=== PATIENT | male | born 1980 | race African-American/Black ===

== ENCOUNTER 2019-06-17 02:45 | Emergency (ER) | payer SELFPAY ==
[~2019-06-17] VITALS: Ht 170.2 cm; Wt 107.2 kg
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
[2019-06-17] MEDS: oxyCODONE/APAP 5/325 1 TAB TABLET PO ONE (04:06)
[2019-06-17] MEDS ORDERED: TRAM50TA PO (04:19)
[2019-06-17] MEDS ORDERED: AMOX1TAB61 PO (04:19)
[2019-06-17 04:36] VITALS: BP 126/62
== END 2019-06-17 05:01 | disposition home or self-care (01) ==
LOC: ER 02:45
DX: S01.511A Laceration without foreign body of lip, initial encounter (principal); S00.83XA Contusion of other part of head, initial encounter; M25.512 Pain in left shoulder; R51 Headache; M54.2 Cervicalgia; Y08.89XA Assault by other specified means, initial encounter; Y93.89 Activity, other specified; Y92.89 Other specified places as the place of occurrence of the external cause; Y99.8 Other external cause status
CPT/HCPCS: 70450; 70486; 72125; 73030; 99285-25